=== PATIENT | male | born 1975 | race Caucasian/White ===

== ENCOUNTER 2016-06-03 15:05 | Day surgery (SDC) | payer OTHER ==
[~2016-06-03 15:05] MED LIST: CYCLOBENZAPRINE10 MG; DEXAMETHASONE4 MG PO; HYDROCODONE/APA1 CAP; MOTRIN800 MG; MULTIVITAMIN1 TAB; NEXIUM40 MG; NORCO 5/325 TAB1 TAB PO; SERTRALINE HCL100 MG PO
[2016-06-03] MEDS ORDERED: WELLBUTRIN SR100 M2 PO (15:26)
== END 2016-06-04 15:45 ==
LOC: RADSP 15:05 → SHSB 15:08 → CAR1 17:00
DX: K82.0 Obstruction of gallbladder (principal); Z79.899 Other long term (current) drug therapy
CPT/HCPCS: C1729; C1894; J2250; J2543; J3010; J7030; Q9967